=== PATIENT | female | born 1960 ===

== ENCOUNTER → 2025-07-09 09:55 | Outpatient (REF) | payer OTHER, SELFPAY | LOC: RAD 09:55 | PROVIDERS: ATTENDING PHYSICIAN Internal Medicine Cardiovascular Disease; FAMILY PHYSICIAN Family Medicine | DX: R07.2 Precordial pain (principal); Z82.49 Family history of ischemic heart disease and other diseases of the circulatory system; I10 Essential (primary) hypertension | CPT/HCPCS: 75574; Q9967 ==